=== PATIENT | male | born 1995 | race Caucasian/White ===

== ENCOUNTER 2017-08-24 15:04 | Emergency (ER) | payer OTHER ==
[2017-08-24] MEDS ORDERED: Lidocaine 1% PF 5 ML VIAL ONE (15:14)
[2017-08-24] MEDS ORDERED: Bacitracin Zinc 1 Packet ONE (15:20)
== END 2017-08-24 15:29 | disposition home or self-care (01) ==
LOC: SCSER 15:04
DX: S61.011A Laceration without foreign body of right thumb without damage to nail, initial encounter (principal); W25.XXXA Contact with sharp glass, initial encounter
CPT/HCPCS: 12001; J2001